=== PATIENT | female | born 1955 | race African-American/Black ===

== ENCOUNTER → 2016-12-20 | Outpatient (CLI) | payer OTHER ==
--- NOTE | 2016-12-25 12:37 | MM ---
Reason for exam: screening (asymptomatic). Last mammogram was performed 14 years ago. History: Patient is postmenopausal and is nulliparous. Took estrogen for 8 months. Physical Findings: A clinical breast exam by your physician is recommended on an annual basis and results should be correlated with mammographic findings. MG Screening Mammo w CAD Bilateral CC and MLO view(s) were taken. Prior study comparison: June 01, 2011, mammogram, performed at [facility]. May 05, 2010, mammogram, performed at [facility]. There are scattered fibroglandular densities. There is no discrete abnormality. ASSESSMENT: Negative, BI-RAD 1 RECOMMENDATION: Routine screening mammogram of both breasts in 1 year.
== END | disposition home or self-care (01) ==
LOC: RADMAMWWP 13:26
PROVIDERS: ATTEND Family Medicine
DX: Z12.31 Encounter for screening mammogram for malignant neoplasm of breast (principal)

== ENCOUNTER → 2017-10-02 | Outpatient (CLI) | payer OTHER | LOC: LABWHC1 13:25 | PROVIDERS: ATTEND Physician Assistant Medical | DX: L30.9 Dermatitis, unspecified (principal) | CPT/HCPCS: 36415; 83516 ==

== ENCOUNTER → 2017-10-12 | Outpatient (CLI) | payer OTHER | END | disposition home or self-care (01) | LOC: LABWHC1 12:21 | PROVIDERS: ATTEND Physician Assistant Medical | DX: L12.0 Bullous pemphigoid (principal) | CPT/HCPCS: 36415; 82955 ==

== ENCOUNTER → 2017-10-15 | Outpatient (CLI) | payer OTHER ==
[2017-10-15 15:14] LABS: Basophils # (A) 0.1 k/uL (0-0.2); Basophils % (A) 0 %; Eosinophils # (A) 0.7 k/uL (0-0.7); Eosinophils % (A) 5 %; HCT 38.9 % (34.0-46.0); HGB 12.9 gm/dL (11.4-16.0); Lymphocytes % (A) 23 %; MCH 25.5 pg (25.0-35.0); MCHC 33.3 g/dL (31.0-37.0); MCV 76.6 fL (80.0-100.0); Mean Platelet Volume 7.1; Microcytosis Slight; Monocytes # (A) 0.6 k/uL (0-1.0); Monocytes % (A) 5 %; Neutrophils # (A) 8.4 k/uL (1.3-7.7); Neutrophils % (A) 65 %; Platelet Count 254 k/uL (150-450); RBC 5.07 m/uL (3.80-5.40); RDW 15.7 % (11.5-15.5); WBC 12.9 k/uL (3.8-10.6)
== END | disposition home or self-care (01) ==
LOC: LABWHC1 14:23
PROVIDERS: ATTEND Dermatology
DX: L12.0 Bullous pemphigoid (principal)
CPT/HCPCS: 36415; 82565; 82955; 84450; 84460; 85025; 86038

== ENCOUNTER 2018-03-05 23:31 | Emergency (ER) | payer OTHER ==
[2018-03-05] MEDS ORDERED: IBUPROFEN 800 MG TAB PO STA (23:58)
[2018-03-05] MEDS ORDERED: Acetaminophen-Codeine 300-30mg TAB PO STA (23:58)
[2018-03-05] MEDS ORDERED: ACETAMINOPHEN TAB 325 MG TAB PO STA (23:58)
[2018-03-05] MEDS ORDERED: ACET/COD 300 MG/30 MG STARTER PACK 6 TAB BTL PO STA (23:58)
--- NOTE | 2018-03-06 00:16 | ED ---
Lower Extremity Injury HPI - General Chief Complaint: Extremity Injury, Lower Stated Complaint: fall Time Seen by Provider: 03/05/18 23:46 Source: patient, RN notes reviewed, old records reviewed Mode of arrival: ambulatory Limitations: no limitations - History of Present Illness Initial Comments: This is a 62-year-old female the ER for evaluation of bilateral lower extremity injury, leg edema ankle injury. Patient recently was down in [place], she did fall down the stairs sustaining. Pain and injury of both ankles and right hip. Patient denies hitting her head or loss of consciousness, she did cut herself on the metal railing did not fall with an was able to catch herself, fell were 3 stairs total. Patient did sit to the entire show at that point without difficulty.. MD Complaint: leg injury, ankle injury (biLateral) Injury: Pelvis: Right, Thigh: Right Type of Injury: blunt, other (Fall) Place: home Severity: moderate Severity scale (1-10): 4 Improves With: nothing Worsens With: weight bearing, movement Context: fall Associated Symptoms: swelling - Related Data Allergies Allergy/AdvReac Type Severity Reaction Status Date / Time No Known Allergies Allergy Verified 03/05/18 23:41 Review of Systems ROS Statement: Those systems with pertinent positive or pertinent negative responses have been documented in the HPI. ROS Other: All systems not noted in ROS Statement are negative. Past Medical History Past Medical History: Hypertension History of Any Multi-Drug Resistant Organisms: None Reported Past Surgical History: Hysterectomy Past Psychological History: No Psychological Hx Reported Smoking Status: Never smoker Past Alcohol Use History: Occasional Past Drug Use History: None Reported General Exam - General Exam Comments Initial Comments: Patient has bilateral significant ankle edema and swelling, pain to palpation, patient also complains of right hip pain in his right hip edema and bruising. Limitations: no limitations General appearance: alert, in no apparent distress Head exam: Present: atraumatic, normocephalic, normal inspection Eye exam: Present: normal appearance, PERRL, EOMI. Absent: scleral icterus, conjunctival injection, periorbital swelling ENT exam: Present: normal exam, mucous membranes moist Neck exam: Present: normal inspection. Absent: tenderness, meningismus, lymphadenopathy Respiratory exam: Present: normal lung sounds bilaterally. Absent: respiratory distress, wheezes, rales, rhonchi, stridor Cardiovascular Exam: Present: regular rate, normal rhythm, normal heart sounds. Absent: systolic murmur, diastolic murmur, rubs, gallop, clicks GI/Abdominal exam: Present: soft, normal bowel sounds. Absent: distended, tenderness, guarding, rebound, rigid Extremities exam: Present: normal inspection, full ROM, normal capillary refill. Absent: tenderness, pedal edema, joint swelling, calf tenderness Back exam: Present: normal inspection Neurological exam: Present: alert, oriented X3, CN II-XII intact Psychiatric exam: Present: normal affect, normal mood Skin exam: Present: warm, dry, intact, normal color. Absent: rash Course Vital Signs 03/05/18 23:37 Temperature 98.0 F Pulse Rate 98 Respiratory 16 Rate Blood Pressure 115/83 O2 Sat by Pulse 99 Oximetry - Reevaluation(s) Reevaluation #1: 03/06/18 00:14 Patient denies headache injury no headache, 03/06/18 00:14 Patient is not on blood thinners Reevaluation #2: 03/06/18 00:14 Patient with 2 stairs fall sustaining right left ankle injury, right hip injury Reevaluation #3: 03/06/18 00:14 Patient is and was able to ambulate Medical Decision Making - Medical Decision Making 62 female the ER status post fall. Patient a fall sustaining injury to bilateral ankles and right hip. Patient presents to ER 6 hours post injury with no acute fracture noted. Patient encouraged to continue rice and can be discharged Disposition Clinical Impression: Ankle edema, bilateral, Fall, Contusion of right hip Disposition: HOME SELF-CARE Condition: Good Instructions: Ankle Sprain (ED), Hip Contusion (ED) Is patient prescribed a controlled substance at d/c from ED?: No Referrals: Dominguez Mendoza MD [Primary Care Provider] - 1-2 days
--- NOTE | 2018-03-06 01:18 | XR ---
EXAMINATION TYPE: XR Hip RT and AP Pelvis DATE OF EXAM: 03/06/2018 COMPARISON: NONE HISTORY: Right hip abrasion fall TECHNIQUE: A single AP view of the pelvis is obtained. Two views of the right hip are obtained. FINDINGS: The pelvic ring is intact. Proximal right femur and hip joint are intact. There is no sign of hip dysplasia. Sacroiliac joints are intact. IMPRESSION: No acute abnormality of the right hip.
--- NOTE | 2018-03-06 01:21 | XR ---
EXAMINATION TYPE: XR ankle complete bilateral DATE OF EXAM: 03/06/2018 COMPARISON: NONE HISTORY: Fall. Pain. TECHNIQUE: 6 views FINDINGS: There is soft tissue swelling around the right ankle joint. There is spurring of the medial malleolus of the right ankle. There is soft tissue swelling around the left ankle joint. I see no fracture nor dislocation. There i s moderate sized plantar calcaneal spur on the left side. There is spurring at the navicular cuneiform joint and the first tarsometatarsal joint of the right f oot. There is minor spurring of the intertarsal joints of the left foot. IMPRESSION: Bilateral soft tissue swelling. Bilateral hypertrophic degenerative changes. No fracture seen.
[2018-03-06 01:51] VITALS: BP 118/94; PULSE 81; RESP 17; TEMP 98.6
== END 2018-03-06 01:31 | disposition home or self-care (01) ==
LOC: EC 23:31
DX: S70.01XA Contusion of right hip, initial encounter (principal); R60.0 Localized edema; W10.9XXA Fall (on) (from) unspecified stairs and steps, initial encounter
CPT/HCPCS: 73502; 99284

== ENCOUNTER → 2018-09-23 | Outpatient (CLI) | payer OTHER ==
[2018-09-23 19:01] LABS: African American GFR (CKD) 78.9 (60.0-200.0); BUN/Creat Ratio 15.56 Ratio (12.00-20.00); Calcium 9.9 mg/dL (8.7-10.3)
== END | disposition home or self-care (01) ==
LOC: LABWHC1 13:59
PROVIDERS: ATTEND Family Medicine
DX: E78.2 Mixed hyperlipidemia (principal); Z79.899 Other long term (current) drug therapy
CPT/HCPCS: 36415; 80048

== ENCOUNTER → 2018-10-18 | Outpatient (CLI) | payer OTHER ==
--- NOTE | 2018-10-22 12:04 | MM ---
Reason for exam: screening (asymptomatic). Last mammogram was performed 1 year and 10 months ago. History: Patient is postmenopausal and is nulliparous. Took estrogen for 8 months. MG Screening Mammo w CAD Bilateral CC and MLO view(s) were taken. XCCL view(s) were taken of the right breast. Prior study comparison: December 20, 2016, bilateral MG screening mammo w CAD. June 01, 2011, mammogram, performed at [facility]. There are scattered fibroglandular densities. No significant new finding when compared with prior studies. ASSESSMENT: Negative, BI-RAD 1 RECOMMENDATION: Routine screening mammogram of both breasts in 1 year.
== END | disposition home or self-care (01) ==
LOC: RADMAMWWP 12:47
PROVIDERS: ATTEND Family Medicine
DX: Z12.31 Encounter for screening mammogram for malignant neoplasm of breast (principal)
CPT/HCPCS: 77067

== ENCOUNTER → 2020-09-09 | Outpatient (CLI) | payer MEDICARE, OTHER ==
[2020-09-09 20:07] LABS: Basophils # (A) 0.07 X 10*3/uL (0.00-0.10); Eosinophils % (A) 2.7 %; HCT 38.7 % (37.2-46.3); Lymphocytes # (A) 2.11 X 10*3/uL (0.90-5.00); Lymphocytes % (A) 28.9 %; MCH 26.5 pg (27.0-32.0); MCHC 33.6 g/dL (32.0-37.0); Mean Platelet Volume 11.7 fL (9.5-12.2); Monocytes # (A) 0.61 X 10*3/uL (0.20-1.00); Monocytes % (A) 8.4 %; Neutrophils # (A) 4.29 X 10*3/uL (1.80-7.70); Neutrophils % (A) 58.7 %; Platelet Count 258 X 10*3/uL (140-440); RDW 15.4 % (11.5-14.5)
[2020-09-09 22:34] LABS: African American GFR (CKD) 78.3 (60.0-200.0); Non-African American GFR(CKD) 67.6 (60.0-200.0)
== END | disposition home or self-care (01) ==
LOC: LABWHC1 13:48
PROVIDERS: ATTEND Dermatology Procedural Dermatology
DX: L12.0 Bullous pemphigoid (principal)
CPT/HCPCS: 36415; 82565; 84450; 84460; 85025

== ENCOUNTER → 2021-03-16 | Outpatient (CLI) | payer MEDICARE, OTHER ==
[2021-03-16 18:12] LABS: Basophils % (A) 1.3 %; Eosinophils # (A) 0.31 X 10*3/uL (0.04-0.35); Eosinophils % (A) 3.9 %; HCT 41.1 % (37.2-46.3); HGB 13.9 g/dL (12.0-15.0); Lymphocytes # (A) 2.04 X 10*3/uL (0.90-5.00); Lymphocytes % (A) 25.6 %; MCH 26.6 pg (27.0-32.0); MCHC 33.8 g/dL (32.0-37.0); MCV 78.6 fL (80.0-97.0); Mean Platelet Volume 11.5 fL (9.5-12.2); Monocytes # (A) 0.67 X 10*3/uL (0.20-1.00); Monocytes % (A) 8.4 %; Neutrophils # (A) 4.82 X 10*3/uL (1.80-7.70); Neutrophils % (A) 60.5 %; Platelet Count 256 X 10*3/uL (140-440); RBC 5.23 X 10*6/uL (4.10-5.20); WBC 7.96 X 10*3/uL (4.50-10.00)
[2021-03-16 19:09] LABS: African American GFR (CKD) 87.7 (60.0-200.0); Non-African American GFR(CKD) 75.7 (60.0-200.0)
== END | disposition home or self-care (01) ==
LOC: LABWHC1 13:01
PROVIDERS: ATTEND Dermatology Procedural Dermatology
DX: L12.0 Bullous pemphigoid (principal)
CPT/HCPCS: 36415; 82565; 84450; 84460; 85025

== ENCOUNTER → 2023-10-02 | Outpatient (CLI) | payer MEDICARE ==
--- NOTE | 2023-10-08 20:13 | CT ---
EXAMINATION TYPE: CT right knee - [facility] Protocol DATE OF EXAM: 10/02/2023 COMPARISON: None HISTORY: Presurgical planning CT DLP: 1126 mGycm Automated exposure control for dose reduction was used. Contrast: None Technique: [facility] presurgical planning of the right knee. Images were obtained in the axial plane at 2 mm thick sections through the hip and ankle and 1 mm thick sections through the knee. Reconstructed i mages in the coronal and sagittal plane are reviewed. FINDINGS: Hip: There is loss of the joint space. No acute fracture or dislocation is. Knee: Multiple calcifications are within the superior patellar joint space. There is loss of the martínez llofemoral joint space. Large osseous spurs are present from the anterior femur. There is loss of lat eral compartment joint space. Advanced degenerative changes also appear to be present medial compartm ent. Medial and lateral tibial plateau spurring and medial lateral femoral condylar spurring is prese nt. Ankle: Ankle mortise appears intact. No acute fracture or dislocation evident. Soft tissues are yasmine l. IMPRESSION: 1. CT for [facility] knee presurgical planning. 2. ADVANCED DEGENERATIVE CHANGES THROUGH THE TRICOMPARTMENT RIGHT KNEE
== END | disposition home or self-care (01) ==
LOC: RADCTMAIN 13:18
PROVIDERS: ATTEND Orthopaedic Surgery
DX: Z01.818 Encounter for other preprocedural examination (principal); M17.11 Unilateral primary osteoarthritis, right knee; Z68.41 Body mass index [BMI] 40.0-44.9, adult

== ENCOUNTER → 2023-10-25 | Outpatient (CLI) | payer MEDICARE ==
[2023-10-25 15:22] LABS: INR 1.1 (<1.2); Partial Thromboplastin Time 24.1 sec (22.0-30.0); Prothrombin Time 12.2 sec (10.0-12.5)
[2023-10-25 18:21] LABS: HCT 37.4 % (37.2-46.3); HGB 12.9 g/dL (12.0-15.0); MCH 27.5 pg (27.0-32.0); MCHC 34.5 g/dL (32.0-37.0); MCV 79.7 FL (80.0-97.0); Mean Platelet Volume 11.4 FL (9.5-12.2); NRBC Per 100 WBC 0 X 10*3/uL (0.00-0.01); Platelet Count 247 X 10*3/uL (140-440); RBC 4.69 X 10*6/uL (4.10-5.20); RDW 15.6 % (11.5-14.5)
[2023-10-25 18:31] LABS: ALT 24 U/L (8-44); AST 23 U/L (13-35); Albumin 4.3 g/dL (3.8-4.9); Albumin/Globulin Ratio 1.65 Ratio (1.60-3.17); Alkaline Phosphatase 89 U/L (41-126); BUN/Creat Ratio 27.33 Ratio (12.00-20.00); Blood Urea Nitrogen 24.6 mg/dL (9.0-27.0); Calcium 9.5 mg/dL (8.7-10.3); Carbon Dioxide 23.4 mmol/L (21.6-31.8); Chloride 102 mmol/L (96-109); Globulin 2.6 g/dL (1.6-3.3); Glucose 139 mg/dL (70-110); Potassium 4.5 mmol/L (3.5-5.5); Sodium 140 mmol/L (135-145); Total Bilirubin 0.3 mg/dL (0.3-1.2); Total Protein 6.9 g/dL (6.2-8.2)
== END | disposition home or self-care (01) ==
LOC: LABPAT 14:11
PROVIDERS: ATTEND Orthopaedic Surgery
DX: Z01.818 Encounter for other preprocedural examination (principal); M17.11 Unilateral primary osteoarthritis, right knee; E11.9 Type 2 diabetes mellitus without complications; Z22.322 Carrier or suspected carrier of Methicillin resistant Staphylococcus aureus
CPT/HCPCS: 80053; 83036; 85027; 85610; 85730; 87070; 93005

== ENCOUNTER 2023-11-07 15:00 | Observation (INO) | payer MEDICARE, OTHER ==
[~2023-11-07 15:00] MED LIST: ACETAMINOPHEN TAB 500 MG TAB ONE; DEXAMETHASONE SOD PHOSPHATE 10 MG/ML 1 ML VIAL ONE; DEXAMETHASONE SOD PHOSPHATE 4 MG/ML 1 ML VIAL ONE; DOCUSATE 100 MG CAP ONE; FAMOTIDINE 20 MG/2 ML VIAL ONE; GLYCOPYRROLATE 0.2 MG/ML 2 ML VIAL ONE; HYDROmorphone (PF) 1 MG/ML ONE; KETAMINE HCL IN 0.9 % NACL 50 MG/5 ML SYRINGE ONE; KETOROLAC 15 MG/ML 1 ML VIAL ONE; LIDOCAINE 1% INJ 10MG/ML (20 ML MDV) ONE; MIDAZOLAM 2 MG/2 ML VIAL ONE; NEOSTIGMINE 1 MG/ML 10 ML VIAL ONE; ONDANSETRON 4 MG/2 ML VIAL ONE; POVIDONE-IODINE 59 ML BOTTLE ONE; PROPOFOL 10 MG/ML 20 ML VIAL IV ONE; ROCURONIUM 10 MG/ML (5 ML VIAL) IV ONE; ROPIVACAINE 5 MG/ML 30 ML VIAL ONE; ROPIVACAINE/EPI/CLONIDINE/KET 50 ML SYRINGE MISCELLANE ONE; SODIUM CHLORIDE 0.9% (PF) VIAL 0 ML ONE; SODIUM CHLORIDE 0.9% 1,000 ML BAG ONE; SUCCINYLCHOLINE CHLORIDE 200 MG/10 ML VIAL IV ONE; TRANEXAMIC 1,000 MG/100ML-NACL PREMIX BAG ONE; ePHEDrine 50 MG/ML 1 ML VIAL ONE; fentaNYL (PF) 50 MCG/ML 2 ML AMP ONE; oxyCODONE ER 10 MG TAB.ER.12H PO ONE
[2023-11-07] MEDS ORDERED: HYDROmorphone 0.5 MG/0.5 ML SYRINGE ONE ×2 (19:27)
[2023-11-07] MEDS ORDERED: SENNOSIDES-DOCUSATE SODIUM 1 EACH TAB PO ONE ×2 (22:12)
[2023-11-08] MEDS ORDERED: HYDROcodone/APAP 5-325MG 1 EACH TAB ONE ×8 (03:35→23:32)
[2023-11-08] MEDS ORDERED: ATORVASTATIN 20 MG TAB ONE (08:17)
[2023-11-08] MEDS ORDERED: ASPIRIN 81 MG ONE ×4 (12:56→23:31)
[2023-11-08] MEDS ORDERED: PANTOPRAZOLE 40 MG TABLET PO ONE ×2 (12:57)
[2023-11-08] MEDS ORDERED: SENNOSIDES-DOCUSATE SODIUM 1 EACH TAB PO ONE ×2 (23:31)
[2023-11-09] MEDS ORDERED: ATORVASTATIN 20 MG TAB ONE (07:53)
[2023-11-09] MEDS ORDERED: PANTOPRAZOLE 40 MG TABLET PO ONE ×2 (07:55)
[2023-11-09] MEDS ORDERED: ASPIRIN 81 MG ONE ×2 (07:55)
[2023-11-09] MEDS ORDERED: HYDROcodone/APAP 5-325MG 1 EACH TAB ONE ×4 (08:03→13:24)
--- NOTE | 2023-11-16 15:54 | OP ---
OPERATIVE REPORT DATE OF SERVICE : 11/07/2023 PREOPERATIVE DIAGNOSIS: Severe right knee osteoarthritis, valgus deformity, 7 degrees. POSTOPERATIVE DIAGNOSIS: Severe right knee osteoarthritis, valgus deformity, 7 degrees. PROCEDURES PERFORMED: 1. Right total knee arthroplasty. 2. Use of CT/MRI images for musculoskeletal navigation. TELEGRAPH REPEATER INSTALLER: Patrick Fuller PA-C (Patrick Fuller PA-C, was required as a skilled pharmacy innovation assistant due to the complexity of the surgery for the patient positioning, draping, exposure, retraction, closure of wound, application of dressing, and mobilization of the patient). IMPLANTS: 1. Andrew Triathlon posterior stabilized femur, size #5. 2. Cope Triathlon universal tibial baseplate, size #5 with 12 mm x 50 mm stem. 3. Andrew Triathlon asymmetric patella, 35. 4. Cope Triathlon total stabilized tibial insert, size #5, 9 mm, TS. ANESTHESIA: General plus block. FLUIDS: 1000 mL of crystalloids. BLOOD LOSS: 200 mL. INDICATIONS FOR PROCEDURE: The patient is a very pleasant, relatively healthy, 68-year-old female with a long standing history of problems with her right knee. She had x-rays, which showed advanced arthritis and a valgus deformity. The patient was initially managed nonsurgically, but ultimately failed and had ongoing pain that affected her quality of life. Due to her failing nonsurgical treatment and having continued pain, she requested proceeding with total knee replacement. Since she had failed 6 months of nonsurgical treatment, I agreed to proceed with surgery. We had a long discussion in the office on the potential risks and complications of the surgery, including but not limited risks from anesthesia, superficial or deep infection, periprosthetic joint infection, instability, stiffness, aseptic loosening of her implants, patellar maltracking, damage to local blood vessels or nerves, continued or worsened pain, and inability to regain preinjury level of function, intraoperative or postoperative fracture, DVT, PE, other medical complications, dissatisfaction with her surgical outcome, and possibly loss of life or limb. The patient understands that while these are the most common complications, other complications are possible. We also discussed the risks with a valgus knee, particularly peroneal nerve palsy and patellar maltracking as well as instability. The patient voiced her understanding of this and provided her consent to go forward with surgery. OPERATIVE FINDINGS: Preoperative valgus after registering with the Anthony robot with 6-1/2 degrees. Following correction with trial implants, the patient's alignment was neutral. DESCRIPTION OF PROCEDURE: The patient was identified in the preoperative holding, and the correct operative extremity was marked with my initials. I reviewed the consent form with the patient, and all of her questions were answered. A block was given by the Anesthesia. The patient was then brought back to the operating room. She was positioned carefully on the OR table, where general anesthetic, preoperative antibiotics, and tranexamic acid were given. She ws then positioned on the table for surgery. A tourniquet was applied in the proximal aspect of the right thigh. A bolster was placed under the right leg with the knee at 90 degrees. A bolster was also placed along the lateral thigh to facilitate leg positioning during the surgery. The contralateral leg was secured to the OR table with foam and tape. The right arm was then draped across the body with a pillow, foam, tape. Non-sterile drapes were applied to the right leg, and a pre- surgical scrub was performed using a chlorhexidine scrub brush. The patient's right leg was then prepped and draped in a standard sterile fashion. Prior to starting the surgery, a time-out was performed, identifying the correct patient, the operative extremity, and procedure, the patient's leg was then elevated, exaggerated with an Esmarch bandage, and the tourniquet was inflated to 300 mmHg. I began by making a straight anterior incision over the knee. A skin incision was made with a scalpel and dissection was carried down sharply with a scalpel to the first fascial layer. Once the first fascial layer was incised, inline with the skin incision, the knee was extended and subfascial flaps were created medially and laterally. A medial parapatellar arthrotomy was then performed. There was a large amount of clear synovial fluid. There were also multiple loose bony debris in the suprapatellar pouch that was removed. On the inspection of the knee, there was severe hypertrophic arthritis with complete loss of joint space throughout the knee. A limited medial release was then performed after incising the anterior horn of the meniscus to facilitate retractor placement to protect the MCL during the procedure. A small amount of the fat pad was then removed, followed by the ACL and PCL. At this point, 4 mm pins were placed within the incision in the distal medial femur and proximal tibia. Arrays were then tightened and the knee was registered with the Sendoid robot. After the knee had been registered, the patient had a 15-degree flexion contracture and 6-1/2 degrees of non-correctable valgus. Due to the amount of deformities, I elected to use the Anthony robot to perform an extension gap first gap balance knee. The proximal tibia and distal femur cuts were made using the Anthony saw until the medial space was zero. After this had been completed, the knee was brought into extension and lamina spreaders were placed. A lateral release was performed using electrocautery of all tight tissues. After a complete lateral release had been performed, an 18 mm spacer block was placed within the knee. The knee was straight and relatively well-balanced. On inspection of the Sendoid robotic numbers, the valgus was corrected to zero, and the knee was almost straight with only a 3-degree flexion contracture. At this time, the knee was brought into flexion and lamina spreaders were placed, distracting the knee joint in flexion. Manipulation and implant positions were made using the Sendoid robotic software to balance the flexion gap and max the extension gap. The Sendoid robotic saw was then brought in and all cuts were performed taking care to protect the MCL and patellar tendons. Once the cuts had been made, the tibia was subluxed anteriorly and a trial baseplate was sized, rotated, and verified with the Sendoid software. At this point, trial implants were placed and the knee felt relatively well stabled. After the trial implants were placed, the arrays were removed. The patella was then cut, sized, and punched. Due to the patient's deformity, I then elected to place a posterior stabilized implant. The trial implants were removed and a box cutting guide was placed over the distal femur and the box cut was made. A PS femur ws then tapped into placed and fit nicely. All trial implants were then removed. The tibia was then subluxed anteriorly. The trial baseplate was pinned in place, and I prepared for the keel and short stem. At this point, all trial implants were placed and the knee had full extension and flexion. It was balanced throughout the arc of motion. Once I was happy with the trial implants, all trials were removed. The knee was then thoroughly irrigated and prepared for the cemented implantation of the implants. I mixed cement on the back table using a vacuum to reduce porosity. Trial implants were dispensed. Once the cement had reached appropriate consistency, it was pressurized into the tibia and the tibial baseplate with stem were placed after placing cement restrictor. The knee was then flexed, and the cement was pressurized into the femur and the posterior stabilized implant was placed. A trial poly liner was placed into the knee joint and the knee was held in extension. The cement was carefully removed including from the pin sites. The patella was then irrigated and pressurized cement was placed, and the patellar button was applied with a clamp. The knee was held in extension until the cement had fully set. After the cement had fully set, the knee was brought through range of motion and felt stable. The trial poly liner was removed and a final total stabilized poly implant was gently tapped into place. On final exam, the knee had full extension and flexion, and felt well-balanced throughout the arc of motion. The knee was then soaked with a dilute Betadine rinse for 3 minutes. A local anesthetic cocktail ws then injected. The knee was then thoroughly irrigated with sterile saline. All bleeders were controlled with electrocautery. The knee was then carefully closed in layers. A sterile dressing was applied. The tourniquet was let down with a total tourniquet time of 98 minutes. The patient was then transferred from the OR table to a gurney, extubated, and brought to the recovery having tolerated the procedure well. PLAN: The patient is going to be admitted under my care. She can weightbear as tolerated following postoperative x-rays. Her dressings will be left in place. She will be started on DVT prophylaxis with aspirin. She will receive two doses of postoperative antibiotics. We will consult Internal Medicine and Physical Therapy. Discharge planning will be either home with home care versus rehab as the patient lives alone. MMODL / IJN: [id number] /
--- NOTE | 2023-12-11 11:59 | XR ---
Site ID [facility] Patient Araceli Hong ID [id number] Order # Procedure RT KNEE LIMITED EXAMINATION TYPE: XR knee limited RT DATE OF EXAM: 11/08/2023 8:34 AM CLINICAL INDICATION: Postsurgical alignment COMPARISON: THIS EXAM WAS READ DURING PACS DOWNTIME, NO PRIORS AVAILABLE. TECHNIQUE: XR knee limited RT; examined in Frontal, lateral projections. FINDINGS: Status post total knee arthroplasty changes with hardware in appropriate alignment and in tact. No evidence of fracture. Subcutaneous lucencies and lucencies within the joint consistent with surgical changes. IMPRESSION: Status post total knee arthroplasty changes with hardware intact and appropriate alignment. No fractu res identified.
== END 2023-11-09 14:25 ==
LOC: OR 15:00 → DISRECOVER 16:15 → UNDOADMIN 16:15 → UNDOADMOB 18:17 → DISRECOVER 18:17 → INTOOBSV 18:17 → UNDODISIN 11-09 14:20
PROVIDERS: ADMIT Orthopaedic Surgery; ATTEND Orthopaedic Surgery
DX: M17.11 Unilateral primary osteoarthritis, right knee (principal); M21.061 Valgus deformity, not elsewhere classified, right knee; I10 Essential (primary) hypertension; E78.5 Hyperlipidemia, unspecified; E66.9 Obesity, unspecified; Z87.891 Personal history of nicotine dependence; Z79.899 Other long term (current) drug therapy; Z68.37 Body mass index [BMI] 37.0-37.9, adult
CPT/HCPCS: 0055T; 27447; 64447; 64999

== ENCOUNTER → 2024-06-18 | Outpatient (CLI) | payer MEDICARE | END | disposition home or self-care (01) | LOC: RADUSWWP 16:30 | PROVIDERS: ATTEND Family Medicine | DX: Z53.9 Procedure and treatment not carried out, unspecified reason (principal) ==

== ENCOUNTER → 2024-06-18 | Outpatient (CLI) | payer MEDICARE ==
[2024-06-19 01:50] LABS: Basophils # (A) 0.06 X 10*3/uL (0.00-0.10); Basophils % (A) 0.8 %; Eosinophils % (A) 1.4 %; HCT 38.8 % (37.2-46.3); HGB 13.1 g/dL (12.0-15.0); Lymphocytes # (A) 2.23 X 10*3/uL (0.90-5.00); Lymphocytes % (A) 31.2 %; MCH 26.2 pg (27.0-32.0); MCHC 33.8 g/dL (32.0-37.0); MCV 77.6 FL (80.0-97.0); Mean Platelet Volume 11.1 FL (9.5-12.2); Monocytes # (A) 0.52 X 10*3/uL (0.20-1.00); Monocytes % (A) 7.3 %; NRBC Per 100 WBC 0 X 10*3/uL (0.00-0.01); Neutrophils # (A) 4.22 X 10*3/uL (1.80-7.70); Platelet Count 256 X 10*3/uL (140-440); RDW 17.3 % (11.5-14.5); WBC 7.15 X 10*3/uL (4.50-10.00)
[2024-06-19 02:19] LABS: ALT 23 U/L (8-44); AST 27 U/L (13-35); Albumin 4.2 g/dL (3.8-4.9); Albumin/Globulin Ratio 1.62 Ratio (1.60-3.17); Alkaline Phosphatase 84 U/L (41-126); BUN/Creat Ratio 24.44 Ratio (12.00-20.00); Calcium 9.7 mg/dL (8.7-10.3); Carbon Dioxide 28.6 mmol/L (21.6-31.8); Chloride 101 mmol/L (96-109); Globulin 2.6 g/dL (1.6-3.3); Glucose 100 mg/dL (70-110); Potassium 4.6 mmol/L (3.5-5.5); Sodium 139 mmol/L (135-145); Total Bilirubin 0.2 mg/dL (0.3-1.2); Total Protein 6.8 g/dL (6.2-8.2)
--- NOTE | 2024-06-19 06:56 | US ---
EXAMINATION TYPE: US venous doppler duplex LE RT DATE OF EXAM: 06/18/2024 4:24 PM COMPARISON: NONE CLINICAL INDICATION: Female, 68 years old with history of [id number] ACUTE DEEP DVT RIGHT LOWER EXT; Amisha ent had hx of DVT in 2023 in her right leg after right knee replacement in October 2023. Patient does not take blood thinners. TECHNIQUE: The lower extremity deep venous system is examined utilizing real time linear array sonog odilon with graded compression, color doppler sonography, and spectral doppler. SIDE PERFORMED: Right FINDINGS: VESSELS IMAGED: Common Femoral Vein Deep Femoral Vein Greater Saphenous Vein * Femoral Vein Popliteal Vein Small Saphenous Vein * Proximal Calf Veins (* superficial vessels) Right Leg: No evidence of DVT, Color Doppler imaging shows patency of the vessels. Spectral waveform s are within normal limits. IMPRESSION: No ultrasound evidence for deep venous thrombosis of the right lower extremity. [facility], , 06/19/2024 6:53 AM
== END | disposition home or self-care (01) ==
LOC: RADUSWWP 16:00
PROVIDERS: ATTEND Family Medicine
DX: I82.401 Acute embolism and thrombosis of unspecified deep veins of right lower extremity (principal); R60.0 Localized edema; E66.01 Morbid (severe) obesity due to excess calories; Z68.41 Body mass index [BMI] 40.0-44.9, adult; Z86.718 Personal history of other venous thrombosis and embolism
CPT/HCPCS: 80053; 85025

== ENCOUNTER → 2024-10-08 | Outpatient (CLI) | payer MEDICARE ==
--- NOTE | 2024-10-09 08:04 | MM ---
Reason for Exam: Screening (asymptomatic). Last mammogram was performed 6 year(s) and 0 month(s) ago. Patient History: Menarche at age 11. Patient has no children. Left ovary removed at age 46. Right ovary removed at age 46. Hysterectomy at age 46. Postmenopausal. Estrogen for 8 months. Risk Values: Leola 5 year model risk: 1.7%. NCI Lifetime model risk: 5.1%. Prior Study Comparison: 06/01/2011 Screening Mammogram, [facility]. 12/20/2016 Bilateral Screening Mammogram, [facility]. 10/18/2018 Bilateral Screening Mammogram, [facility]. Tissue Density: The breasts are heterogeneously dense, which may obscure small masses. Findings: Analyzed By CAD. There is no suspicious group of microcalcifications or new suspicious mass in either breast. Benign appearing calcifications. Overall Assessment: Benign, BI-RAD 2 Management: Screening Mammogram of both breasts in 1 year. . Patient should continue monthly self-breast exams. A clinical breast exam by your physician is recommended on an annual basis. This exam should not preclude additional follow-up of suspicious palpable abnormalities. Note on Leola scores and lifetime risk: 1. A Leola score greater than 3% is considered moderate risk. If this is the case, consider specialist referral to assess eligibility for a risk reducing agent. 2. If overall lifetime risk for the development of breast cancer is 20% or higher, the patient may qualify for future screening with alternating mammogram and breast MRI. [facility], , 10/09/2024 8:01 AM. Electronically signed and approved by: Ciro Ramsay M.D. Radiologis
== END | disposition home or self-care (01) ==
LOC: RADMAMWWP 14:59
PROVIDERS: ATTEND Family Medicine
DX: Z12.31 Encounter for screening mammogram for malignant neoplasm of breast (principal); R92.333 Mammographic heterogeneous density, bilateral breasts; Z78.0 Asymptomatic menopausal state
CPT/HCPCS: 77063; 77067

== ENCOUNTER → 2024-10-08 | Outpatient (CLI) | payer MEDICARE ==
--- NOTE | 2024-10-09 08:54 | BD ---
EXAMINATION TYPE: Axial Bone Density DATE OF EXAM: 10/08/2024 CLINICAL HISTORY: 69 years old Female. ICD-10 CODE: Z78.0 POSTMENOPAUSAL , Additional History: Height: 67.25 Weight: 284 FRAX RISK QUESTIONS: Alcohol (3 or more units per day): no Family History (Parent hip fracture): no Glucocorticoids (More than 3mos): no (Ex: prednisone, prednisolone, methylprednisolone, dexamethasone, and hydrocortisone). History of Fracture in Adulthood: ankle Secondary Osteoporosis: 1. Type 1 Diabetes: no 2. Hyperthyroidism: no 3. Menopause before 45: no 4. Malnutrition: no 5. Chronic liver disease: no Rheumatoid Arthritis: no Current Tobacco Use: no RISK FACTORS HISTORY OF: Hip Fracture (Right/Left): no Spine Fracture: no History of Wrist Fracture: no Surgery to Spine/Hip(right/left)/Wrist (right/left): no MEDICATIONS: Thyroid Medications: no Osteoporosis Medications: no EXAM MEASUREMENTS: Bone mineral densitometry was performed using the [email or web address] System. Bone mineral density as measured about the Lumbar spine is: ----- L1-L4(G/cm2): 2.079 T Score Values are as follows: ----- L1: 6.4 ----- L2: 7.6 ----- L3: 8.7 ----- L4: 6.7 ----- L1-L4: 7.5 Z Score Values are as follows: ----- L1: 6.3 ----- L2: 7.4 ----- L3: 8.5 ----- L4: 6.5 ----- L1-L4: 7.3 Baseline Study Bone mineral density about the R hip (g/cm2): 1.202 Bone mineral density about the L hip (g/cm2): 1.089 T Score values are as follows: -----R Neck: 0.8 -----L Neck: 0.6 -----R Total: 1.5 -----L Total: 0.6 Z Score values are as follows: -----R Neck: 0.8 -----L Neck: 0.5 -----R Total: 1.1 -----L Total: 0.2 Baseline Study FRAX%s: The graph provided illustrates a 4.0% chance for a major osteoporotic fx and a 0.1% chance fo r the hips probability for fx in 10 years time. IMPRESSION: Normal (Values between +1 and -1 indicate normal bone mass). Consider repeating this study in 5 year s or sooner if there is some new clinical indication. NOTE: T-SCORE=SD OF THE YOUNG ADULT MEAN. [facility], , 10/09/2024 8:52 AM
== END | disposition home or self-care (01) ==
LOC: RADBDWWP 14:57
PROVIDERS: ATTEND Family Medicine
DX: Z78.0 Asymptomatic menopausal state (principal)
CPT/HCPCS: 77080